=== PATIENT | male | born 1985 | race African-American/Black ===

== ENCOUNTER 2021-02-17 13:09 | Emergency (ER) | payer SELFPAY ==
[~2021-02-17] VITALS: Ht 167.6 cm; Wt 73.0 kg
[2021-02-17 13:56] VITALS: BP 149/79
[2021-02-17] MEDS ORDERED: CEFTRIAXONE SODIUM 500 MG/VIAL IM ONE (14:00)
== END 2021-02-17 22:29 | disposition left against medical advice (07) ==
LOC: ER 13:09
DX: Z53.21 Procedure and treatment not carried out due to patient leaving prior to being seen by health care provider (principal); R30.0 Dysuria; R36.9 Urethral discharge, unspecified